=== PATIENT | male | born 1995 | race Caucasian/White ===

== ENCOUNTER 2019-09-10 18:34 | Emergency (ER) | payer SELFPAY ==
[~2019-09-10] VITALS: Ht 188 cm; Wt 136.1 kg
[2019-09-10 18:37] VITALS: BP 148/80
[2019-09-10] MEDS ORDERED: HYDROcodone/APAP 5/325MG 1 TAB TABLET PO STA (19:01)
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
== END 2019-09-10 20:51 | disposition home or self-care (01) ==
LOC: ER 18:34
DX: M25.571 Pain in right ankle and joints of right foot (principal); Z90.89 Acquired absence of other organs
CPT/HCPCS: 73590; 73610; 73630; 99284; L4350